=== PATIENT | female | born 1970 | race Caucasian/White ===

== ENCOUNTER 2018-09-21 16:34 | Emergency (ER) | payer OTHER ==
[~2018-09-21] VITALS: Ht 160 cm; Wt 66.7 kg
[2018-09-21 17:30] LABS: BILIRUBIN,URINE NEGATIVE (NEGATIVE); CLARITY,URINE SL CLOUDY (CLEAR); COLOR,URINE YELLOW (YELLOW); KETONES,URINE 1+ (NEGATIVE); LEUKOCYTE ESTERASE ,URINE NEGATIVE (NEGATIVE); NITRITE,URINE NEGATIVE (NEGATIVE); PREGNANCY TEST, URINE NEGATIVE (NEGATIVE); PROTEIN,URINE DIPSTICK NEGATIVE (NEGATIVE); URINE UROBILINOGEN 0.2 mg/dL (0.2 - 1)
[2018-09-21 17:36] LABS: EOSINOPHILS % 0.2 % (0.0-6.0); HEMATOCRIT 43.4 % (34.2-44.1); HEMOGLOBIN 14.2 g/dL (12.0-16.0); LYMPHOCYTES % 1.1 % (18.0-39.1); MEAN CORPUSCULAR HGB CONC 32.7 g/dL (31-35); MEAN CORPUSCULAR VOLUME 88.8 fL (81-99); MONOCYTES % 0.7 % (4.4-11.3); NEUTROPHILS % 7.7 % (38.7-80.0); PLATELET COUNT 195 x10e3/uL (140-360); RED BLOOD COUNT 4.89 x10e6/uL (3.6-5.1); RED CELL DISTRIBUTION WIDTH 13.2 % (11.7-14.4)
[2018-09-21 17:37] LABS: BASOPHILS % 0.1 % (0.0-1.0)
[2018-09-21 17:38] LABS: BACTERIA,URINE MANY /HPF; EPITHELIAL CELLS,URINE MODERATE /LPF; WBC,URINE (MAN) 0-5 /HPF (0-5)
[2018-09-21 17:57] LABS: BLOOD UREA NITROGEN 10 mg/dL (7-26); BUN/CREATININE RATIO 14 (6-25); CALCIUM 9.9 mg/dL (8.4-10.2); CARBON DIOXIDE 24 mmol/L (22-29); CHLORIDE 102 mmol/L (98-107); CREATININE, SERUM 0.71 mg/dL (0.57-1.11); EST GLOMERULAR FILTRATION RATE > 60 ML/MIN (60-); GLUCOSE 79 mg/dL (74-118); SODIUM 137 mmol/L (136-145)
[2018-09-21 17:58] LABS: ALANINE AMINOTRANSFERASE 47 IU/L (0-55); ALBUMIN 3.9 g/dL (3.5-5.0); ALKALINE PHOSPHATASE 111 IU/L (40-150)
--- NOTE | 2018-09-21 18:37 | Diagnostic Imaging Report ---
Exam: Abdominal film Clinical History: Abdominal pain Comparison: None. DISCUSSION: Nonobstructive bowel gas pattern. No visualized free air. IMPRESSION: 1. Nonobstructive bowel gas pattern. Signed by: Dr. Krishna Osborne M.D. on 09/21/2018 6:34 PM
== END 2018-09-21 22:56 | disposition home or self-care (01) ==
LOC: ER 16:34
DX: R10.32 Left lower quadrant pain (principal)
CPT/HCPCS: 36415; 74018; 80053; 81001; 81025; 85025; 99284

== ENCOUNTER 2020-08-16 16:46 | Inpatient (IN) | payer OTHER ==
[~2020-08-16] VITALS: Ht 160 cm; Wt 67.6 kg
[2020-08-16] MEDS ORDERED: ACETAMINOPHEN 325 MG TAB PO STA (17:03)
[2020-08-16 17:16] LABS: BASOPHILS # (AUTO) 0.1 (0.0-0.1); BASOPHILS % 0.4 % (0.0-1.0); EOSINOPHILS % 0.3 % (0.0-6.0); HEMATOCRIT 37.3 % (34.2-44.1); HEMOGLOBIN 12.1 g/dL (12.0-16.0); LYMPHOCYTES # (AUTO) 0.9 (1.0-3.2); LYMPHOCYTES % 6.6 % (18.0-39.1); MEAN CORPUSCULAR HEMOGLOBIN 27.9 pg (28-32); MEAN CORPUSCULAR HGB CONC 32.4 g/dL (31-35); MEAN CORPUSCULAR VOLUME 85.9 fL (81-99); NEUTROPHILS # (AUTO) 11.9 (2.1-6.9); NEUTROPHILS % 84.9 % (38.7-80.0); PLATELET COUNT 278 x10e3/uL (140-360); RED BLOOD COUNT 4.34 x10e6/uL (3.6-5.1); RED CELL DISTRIBUTION WIDTH 12.5 % (11.7-14.4)
[2020-08-16] MEDS ORDERED: PIPERACILLIN/TAZO 4.5 GM 100 ML IV STA (17:24)
[2020-08-16 17:30] LABS: CLARITY,URINE HAZY (CLEAR); COLOR,URINE YELLOW (YELLOW); LEUKOCYTE ESTERASE ,URINE TRACE (NEGATIVE); NITRITE,URINE NEGATIVE (NEGATIVE)
[2020-08-16] MEDS ORDERED: LACTATED RINGER'S 1,000 ML INJ ONE ×2 (17:30)
[2020-08-16 17:31] LABS: KETONES,URINE 2+ (NEGATIVE); PROTEIN,URINE DIPSTICK >=300 (NEGATIVE); URINE UROBILINOGEN 0.2 mg/dL (0.2 - 1)
[2020-08-16 17:32] LABS: BACTERIA,URINE FEW /HPF; EPITHELIAL CELLS,URINE FEW /LPF; RBC,URINE 21-50 /HPF (0-5)
[2020-08-16 17:39] LABS: ALANINE AMINOTRANSFERASE 9 IU/L (0-55); ALBUMIN/GLOBULIN RATIO 0.7 (0.8-2.0); ALKALINE PHOSPHATASE 84 IU/L (40-150); ANION GAP 17.8 mmol/L (8-16); BLOOD UREA NITROGEN 11 mg/dL (7-26); BUN/CREATININE RATIO 15 (6-25); CALCIUM 8.7 mg/dL (8.4-10.2); CARBON DIOXIDE 22 mmol/L (22-29); CHLORIDE 100 mmol/L (98-107); CREATININE, SERUM 0.71 mg/dL (0.57-1.11); EST GLOMERULAR FILTRATION RATE > 60 ML/MIN (60-); GLUCOSE 108 mg/dL (74-118); POTASSIUM 3.8 mmol/L (3.5-5.1); SODIUM 136 mmol/L (136-145)
[2020-08-16 17:42] LABS: INR 1.23; PROTHROMBIN TIME 16.3 seconds (11.9-14.5)
[2020-08-16] MEDS ORDERED: SODIUM CHLORIDE 0.9% 100 ML ONE (18:11)
[2020-08-16] MEDS ORDERED: IOPAMIDOL 370 MG/ML 200 ML INFUS..BTL INJ ONE (18:12)
[2020-08-16] MEDS ORDERED: METRONIDAZOLE 750MG/NS 150ML 150 ML IV STA (20:06)
[2020-08-16] MEDS: ONDANSETRON HCL INJ 2MG/ML 2ML 2 MG/ML VIAL IV PRN (20:38)
[2020-08-16] MEDS: METRONIDAZOLE 500MG/NS 100ML 100 ML IV SCH (20:54)
[2020-08-16 22:19] VITALS: BP 90/64
[2020-08-16 22:38] VITALS: BP 90/64
[2020-08-16 22:41] VITALS: BP 90/64
[2020-08-16] MEDS: SODIUM CHLORIDE 0.9% 1000ML 1,000 ML IV SCH (22:57)
[2020-08-16] MEDS ORDERED: LEVOTHYROXINE100 MC2 PO (22:59)
[2020-08-17] VITALS (8 sets, daily range): BP systolic 104–117; BP diastolic 65–70
[2020-08-17] MEDS ORDERED: HYDRALAZINE HCL 20 MG/ML VIAL IV PRN (03:15)
[2020-08-17] MEDS ORDERED: DOCUSATE SODIUM 100 MG CAP PO PRN (03:15)
[2020-08-17] MEDS ORDERED: POTASSIUM CHLORIDE 20 MEQ TAB CR PO PRN (03:15)
[2020-08-17] MEDS ORDERED: MELATONIN 5 MG TABLET PO PRN (03:15)
[2020-08-17] MEDS ORDERED: CHLORASEPTIC SPRAY 177 ML BTL MM PRN (03:15)
[2020-08-17] MEDS ORDERED: DEXTROSE 50% SYRINGE 50 ML IV PRN (03:15)
[2020-08-17] MEDS ORDERED: ACETAMINOPHEN 325 MG TAB PO PRN (03:15)
[2020-08-17] MEDS ORDERED: DIPHENHYDRAMINE HCL 25 MG CAP PO PRN (03:15)
[2020-08-17] MEDS: SODIUM CHLORIDE 0.9% 1000ML 1,000 ML IV SCH (05:38)
[2020-08-17] MEDS ORDERED: METRONIDAZOLE 750MG/NS 150ML 150 ML IV SCH (06:00)
[2020-08-17] MEDS ORDERED: PIPERACILLIN/TAZO 4.5 GM 100 ML IV SCH ×2 (06:00→09:30)
[2020-08-17 07:29] LABS: BASOPHILS % 0.3 % (0.0-1.0); EOSINOPHILS # (AUTO) 0.1 (0.0-0.4); EOSINOPHILS % 0.6 % (0.0-6.0); HEMATOCRIT 31.8 % (34.2-44.1); HEMOGLOBIN 10.1 g/dL (12.0-16.0); LYMPHOCYTES # (AUTO) 0.9 (1.0-3.2); LYMPHOCYTES % 8.4 % (18.0-39.1); MEAN CORPUSCULAR HEMOGLOBIN 27.4 pg (28-32); MEAN CORPUSCULAR HGB CONC 31.8 g/dL (31-35); MEAN CORPUSCULAR VOLUME 86.4 fL (81-99); MONOCYTES # (AUTO) 0.9 (0.2-0.8); MONOCYTES % 8.1 % (4.4-11.3); NEUTROPHILS # (AUTO) 9.1 (2.1-6.9); NEUTROPHILS % 81.7 % (38.7-80.0); PLATELET COUNT 199 x10e3/uL (140-360); RED BLOOD COUNT 3.68 x10e6/uL (3.6-5.1); RED CELL DISTRIBUTION WIDTH 12.6 % (11.7-14.4)
[2020-08-17] MEDS: PANTOPRAZOLE SOD 40 MG TABEC PO SCH (07:30)
[2020-08-17 07:53] LABS: ANION GAP 13.3 mmol/L (8-16); BLOOD UREA NITROGEN 8 mg/dL (7-26); BUN/CREATININE RATIO 13 (6-25); CALCIUM 7.7 mg/dL (8.4-10.2); CARBON DIOXIDE 23 mmol/L (22-29); CHLORIDE 104 mmol/L (98-107); CREATININE, SERUM 0.63 mg/dL (0.57-1.11); EST GLOMERULAR FILTRATION RATE > 60 ML/MIN (60-); GLUCOSE 98 mg/dL (74-118); POTASSIUM 3.3 mmol/L (3.5-5.1); SODIUM 137 mmol/L (136-145)
[2020-08-17] MEDS: METRONIDAZOLE 500MG/NS 100ML 100 ML IV SCH (09:35)
[2020-08-17] MEDS: ONDANSETRON HCL INJ 2MG/ML 2ML 2 MG/ML VIAL IV PRN ×2 (13:55→22:23)
[2020-08-17] MEDS: MORPHINE SULFATE INJ 4 MG/ML INJ 1ML IV PRN ×2 (13:55→22:23)
[2020-08-17] MEDS: LEVOFLOXACIN 500MG/D5W 100ML 100 ML IV SCH (14:00)
[2020-08-17] MEDS ORDERED: POTASSIUM CHLORIDE 20MEQ/100ML 200 ML IV ONE (14:00)
[2020-08-17] MEDS: DEXTROSE 5%/0.9% SOD CHL 1,000 ML IV SCH (15:40)
[2020-08-17] MEDS: ENOXAPARIN SOD INJ 40 MG/0.4 ML SYR SC SCH (17:54)
[2020-08-17] MEDS: PIPERACILLIN/TAZOBAC 3.375 GM in SODIUM CHLORIDE 0.9% 50ML 50 ML IV SCH (17:54)
[2020-08-17] MEDS: METRONIDAZOLE 750MG/NS 150ML 150 ML IV SCH (22:23)
[2020-08-18] VITALS (8 sets, daily range): BP systolic 91–112; BP diastolic 60–76
[2020-08-18] MEDS: PIPERACILLIN/TAZOBAC 3.375 GM in SODIUM CHLORIDE 0.9% 50ML 50 ML IV SCH ×4 (00:23→18:41)
[2020-08-18] MEDS: DEXTROSE 5%/0.9% SOD CHL 1,000 ML IV SCH ×3 (00:30→21:03)
[2020-08-18 05:22] LABS: BASOPHILS % 0.4 % (0.0-1.0); EOSINOPHILS # (AUTO) 0.1 (0.0-0.4); EOSINOPHILS % 1.3 % (0.0-6.0); HEMATOCRIT 29.9 % (34.2-44.1); HEMOGLOBIN 9.4 g/dL (12.0-16.0); MEAN CORPUSCULAR HEMOGLOBIN 27.6 pg (28-32); MEAN CORPUSCULAR HGB CONC 31.4 g/dL (31-35); MEAN CORPUSCULAR VOLUME 87.9 fL (81-99); MONOCYTES # (AUTO) 0.6 (0.2-0.8); MONOCYTES % 7.7 % (4.4-11.3); NEUTROPHILS # (AUTO) 5.6 (2.1-6.9); NEUTROPHILS % 75.5 % (38.7-80.0); PLATELET COUNT 196 x10e3/uL (140-360); RED CELL DISTRIBUTION WIDTH 12.7 % (11.7-14.4)
[2020-08-18 05:53] LABS: ANION GAP 10.4 mmol/L (8-16); BLOOD UREA NITROGEN < 5 mg/dL (7-26); CALCIUM 7.5 mg/dL (8.4-10.2); CARBON DIOXIDE 25 mmol/L (22-29); CHLORIDE 106 mmol/L (98-107); CREATININE, SERUM 0.68 mg/dL (0.57-1.11); EST GLOMERULAR FILTRATION RATE > 60 ML/MIN (60-); GLUCOSE 116 mg/dL (74-118); POTASSIUM 3.4 mmol/L (3.5-5.1); SODIUM 138 mmol/L (136-145)
[2020-08-18 05:57] LABS: BUN/CREATININE RATIO 7 (6-25)
[2020-08-18] MEDS: METRONIDAZOLE 750MG/NS 150ML 150 ML IV SCH ×3 (05:58→21:56)
[2020-08-18] MEDS ORDERED: LEVOTHYROXINE SODIUM PO SCH (07:30)
[2020-08-18] MEDS: PANTOPRAZOLE SOD 40 MG TABEC PO SCH (09:33)
[2020-08-18] MEDS: THYROID 60 MG TAB PO SCH (10:50)
[2020-08-18] MEDS: LEVOFLOXACIN 500MG/D5W 100ML 100 ML IV SCH (15:40)
[2020-08-18] MEDS: ENOXAPARIN SOD INJ 40 MG/0.4 ML SYR SC SCH (18:41)
[2020-08-18] MEDS: MORPHINE SULFATE INJ 4 MG/ML INJ 1ML IV PRN (20:45)
[2020-08-18] MEDS: ONDANSETRON HCL INJ 2MG/ML 2ML 2 MG/ML VIAL IV PRN (20:45)
[2020-08-18] MEDS: CEFEPIME 2 GM/NS 0.9% 100 ML 100 ML IV SCH (23:00)
[2020-08-19] VITALS (9 sets, daily range): BP systolic 108–124; BP diastolic 67–83
[2020-08-19] MEDS: DEXTROSE 5%/0.9% SOD CHL 1,000 ML IV SCH ×3 (01:51→21:03)
[2020-08-19] MEDS: METRONIDAZOLE 750MG/NS 150ML 150 ML IV SCH ×2 (05:17→13:52)
[2020-08-19 07:06] LABS: BASOPHILS % 0.8 % (0.0-1.0); EOSINOPHILS # (AUTO) 0.2 (0.0-0.4); EOSINOPHILS % 2.8 % (0.0-6.0); HEMATOCRIT 30.5 % (34.2-44.1); HEMOGLOBIN 9.8 g/dL (12.0-16.0); LYMPHOCYTES # (AUTO) 0.8 (1.0-3.2); LYMPHOCYTES % 14.6 % (18.0-39.1); MEAN CORPUSCULAR HGB CONC 32.1 g/dL (31-35); MEAN CORPUSCULAR VOLUME 87.1 fL (81-99); MONOCYTES # (AUTO) 0.4 (0.2-0.8); MONOCYTES % 8.3 % (4.4-11.3); NEUTROPHILS # (AUTO) 3.8 (2.1-6.9); NEUTROPHILS % 72.4 % (38.7-80.0); PLATELET COUNT 208 x10e3/uL (140-360); RED CELL DISTRIBUTION WIDTH 12.7 % (11.7-14.4)
[2020-08-19 07:52] LABS: ANION GAP 12.7 mmol/L (8-16); BLOOD UREA NITROGEN < 5 mg/dL (7-26); CALCIUM 7.7 mg/dL (8.4-10.2); CARBON DIOXIDE 24 mmol/L (22-29); CHLORIDE 107 mmol/L (98-107); CREATININE, SERUM 0.64 mg/dL (0.57-1.11); EST GLOMERULAR FILTRATION RATE > 60 ML/MIN (60-); GLUCOSE 123 mg/dL (74-118); POTASSIUM 3.7 mmol/L (3.5-5.1); SODIUM 140 mmol/L (136-145)
[2020-08-19 07:54] LABS: BUN/CREATININE RATIO 8 (6-25)
[2020-08-19] MEDS: CEFEPIME 2 GM/NS 0.9% 100 ML 100 ML IV SCH (09:27)
[2020-08-19] MEDS: THYROID 60 MG TAB PO SCH (09:27)
[2020-08-19] MEDS: PANTOPRAZOLE SOD 40 MG TABEC PO SCH (09:27)
[2020-08-19] MEDS: ENOXAPARIN SOD INJ 40 MG/0.4 ML SYR SC SCH (16:35)
[2020-08-19] MEDS: MEROPENEM 1GM 100 ML IV SCH (21:03)
[2020-08-20] VITALS (7 sets, daily range): BP systolic 119–128; BP diastolic 71–84
[2020-08-20] MEDS: MEROPENEM 1GM 100 ML IV SCH ×3 (05:14→21:29)
[2020-08-20] MEDS: DEXTROSE 5%/0.9% SOD CHL 1,000 ML IV SCH ×4 (05:25→23:21)
[2020-08-20] MEDS: THYROID 60 MG TAB PO SCH (08:29)
[2020-08-20] MEDS: PANTOPRAZOLE SOD 40 MG TABEC PO SCH (08:29)
[2020-08-20] MEDS: ENOXAPARIN SOD INJ 40 MG/0.4 ML SYR SC SCH (16:05)
[2020-08-21] VITALS (8 sets, daily range): BP systolic 103–129; BP diastolic 72–85
[2020-08-21] MEDS: MEROPENEM 1GM 100 ML IV SCH ×3 (06:20→22:58)
[2020-08-21] MEDS: PANTOPRAZOLE SOD 40 MG TABEC PO SCH (08:22)
[2020-08-21] MEDS: THYROID 60 MG TAB PO SCH (08:29)
[2020-08-21] MEDS: DEXTROSE 5%/0.9% SOD CHL 1,000 ML IV SCH (14:45)
[2020-08-21] MEDS: ENOXAPARIN SOD INJ 40 MG/0.4 ML SYR SC SCH (18:14)
[2020-08-22] VITALS (7 sets, daily range): BP systolic 93–109; BP diastolic 42–70
[2020-08-22] MEDS: MEROPENEM 1GM 100 ML IV SCH ×2 (06:25→13:58)
[2020-08-22] MEDS: THYROID 60 MG TAB PO SCH (07:58)
[2020-08-22] MEDS: PANTOPRAZOLE SOD 40 MG TABEC PO SCH (07:58)
[2020-08-22] MEDS ORDERED: ONDANSETRON HCL 4 MG ORAL DISINTEGRATING TAB PO PRN (09:15)
[2020-08-22] MEDS: ENOXAPARIN SOD INJ 40 MG/0.4 ML SYR SC SCH (16:02)
== END 2020-08-22 17:49 | disposition home or self-care (01) | DRG 872 ==
LOC: ER 17:39 → ERHOLD 20:59 → MED/SURG 21:57
PROVIDERS: ADMIT Internal Medicine; ATTEND Internal Medicine
PROC: 02HV33Z Insertion of Infusion Device into Superior Vena Cava, Percutaneous Approach (ICD-10-PCS; principal; 2020-08-16)
PROC: 02HV33Z Insertion of Infusion Device into Superior Vena Cava, Percutaneous Approach (ICD-10-PCS; 2020-08-21)
DX: A41.9 Sepsis, unspecified organism (principal); K57.80 Diverticulitis of intestine, part unspecified, with perforation and abscess without bleeding; E03.9 Hypothyroidism, unspecified; D72.829 Elevated white blood cell count, unspecified; Z20.822 Contact with and (suspected) exposure to COVID-19
CPT/HCPCS: 36415; 36569; 36584; 71045; 71046; 74177; 74470; 80048; 80053; 81001; 83605; 83690; 84702; 85025; 85610; 87040; 87086; 93005; 96361; 99284; J1650; J1956; J2270; J2405; J2543; J3480; J7030; J7042; J7050; J7121; Q9967; U0002

== ENCOUNTER → 2020-09-16 | Outpatient (CLI) | payer OTHER ==
[~2020-09-16] MED LIST: DIATRIZOATE MEGL/DIATRIZOA SOD 30 ML BTL PO ONE; IOPAMIDOL 370 MG/ML 200 ML INFUS..BTL INJ ONE; LEVOTHYROXINE100 MC2 PO; SODIUM CHLORIDE 0.9% 50ML 50 ML ONE
== END ==
LOC: CT 13:46
PROVIDERS: ATTEND Internal Medicine Infectious Disease
DX: K57.33 Diverticulitis of large intestine without perforation or abscess with bleeding (principal)
CPT/HCPCS: 74177; 81025; Q9967

== ENCOUNTER → 2020-10-06 | Outpatient (CLI) | payer OTHER ==
[~2020-10-06] MED LIST changes: -DIATRIZOATE MEGL/DIATRIZOA SOD 30 ML BTL PO ONE; -IOPAMIDOL 370 MG/ML 200 ML INFUS..BTL INJ ONE; -SODIUM CHLORIDE 0.9% 50ML 50 ML ONE
== END ==
LOC: DX 10:39
PROVIDERS: ATTEND Surgery
DX: K57.32 Diverticulitis of large intestine without perforation or abscess without bleeding (principal)
CPT/HCPCS: 74280; 81025

== ENCOUNTER 2020-10-29 07:10 | Inpatient (IN) | payer OTHER ==
[2020-10-24 10:17] LABS: BASOPHILS # (AUTO) 0.1 (0.0-0.1); BASOPHILS % 1.2 % (0.0-1.0); EOSINOPHILS # (AUTO) 0.1 (0.0-0.4); EOSINOPHILS % 2.1 % (0.0-6.0); HEMATOCRIT 40.7 % (34.2-44.1); HEMOGLOBIN 13.4 g/dL (12.0-16.0); LYMPHOCYTES % 19.8 % (18.0-39.1); MEAN CORPUSCULAR HEMOGLOBIN 29.1 pg (28-32); MEAN CORPUSCULAR HGB CONC 32.9 g/dL (31-35); MEAN CORPUSCULAR VOLUME 88.3 fL (81-99); MONOCYTES # (AUTO) 0.4 (0.2-0.8); MONOCYTES % 7.9 % (4.4-11.3); NEUTROPHILS # (AUTO) 3.3 (2.1-6.9); NEUTROPHILS % 68.6 % (38.7-80.0); PLATELET COUNT 194 x10e3/uL (140-360); RED BLOOD COUNT 4.61 x10e6/uL (3.6-5.1)
[2020-10-24 10:36] LABS: ALANINE AMINOTRANSFERASE 30 IU/L (0-55); ALBUMIN 4.1 g/dL (3.5-5.0); ALBUMIN/GLOBULIN RATIO 1.4 (0.8-2.0); ALKALINE PHOSPHATASE 68 IU/L (40-150); ANION GAP 12.4 mmol/L (8-16); BLOOD UREA NITROGEN 14 mg/dL (7-26); BUN/CREATININE RATIO 18 (6-25); CARBON DIOXIDE 27 mmol/L (22-29); CHLORIDE 105 mmol/L (98-107); EST GLOMERULAR FILTRATION RATE > 60 ML/MIN (60-); GLUCOSE 99 mg/dL (74-118); POTASSIUM 4.4 mmol/L (3.5-5.1); SODIUM 140 mmol/L (136-145)
[~2020-10-29] VITALS: Ht 160 cm; Wt 76.2 kg
[~2020-10-29 07:10] MED LIST changes: +ARMOUR THYROID60 MG PO
[2020-10-29] MEDS ORDERED: QUERCETIN DIHYDR1 GM PO (07:41)
[2020-10-29] MEDS ORDERED: NEOMYCIN SULFA500 MG PO (07:41)
[2020-10-29] MEDS ORDERED: VITAMIN K7 PO (07:41)
[2020-10-29] MEDS ORDERED: AZITHROMYCIN600 MG PO (07:41)
[2020-10-29] MEDS ORDERED: ZINC PO (07:41)
[2020-10-29] MEDS ORDERED: VITAMIN C500 MG PO (07:41)
[2020-10-29] MEDS ORDERED: SLOW-MAG64 MG PO (07:41)
[2020-10-29] MEDS ORDERED: VITAMIN D310 MCG PO (07:41)
[2020-10-29] MEDS ORDERED: PROBIOTIC PO (07:41)
[2020-10-29] MEDS ORDERED: PIPERACILLIN/TAZOBAC 3.375 GM VIAL ONE (07:59)
[2020-10-29] MEDS ORDERED: GENTAMICIN 80MG/NS 100 ML 200 ML IV ONE (08:00)
[2020-10-29] MEDS ORDERED: SODIUM CHLORIDE 0.9% 50ML 50 ML ONE (08:01)
[2020-10-29] MEDS ORDERED: IOPAMIDOL 300MG/ML 50ML INFUS..BTL IV ONE (08:41)
[2020-10-29] MEDS ORDERED: BUPIVACAINE 0.5%/EPI 30 ML SDV INJ ONE (08:42)
[2020-10-29] MEDS ORDERED: HYDROMORPHONE 2MG/ML 2 MG/ML ML ONE (10:33)
[2020-10-29] MEDS ORDERED: HYDROMORPHONE 0.2MG/ML-SOD CHL 30ML PCA SYRINGE IV PRN (13:00)
[2020-10-29] MEDS ORDERED: KETOROLAC TROMETHAMINE 30 MG/ML VIAL IV PRN (13:00)
[2020-10-29] MEDS ORDERED: NALOXONE HCL INJ 0.4 MG/ML AMP IV PRN (13:00)
[2020-10-29] MEDS ORDERED: METOCLOPRAMIDE HCL 10 MG/2ML VIAL IV PRN (13:00)
[2020-10-29] MEDS ORDERED: ACETAMINOPHEN 1000 MG/100 ML IV PRN (13:00)
[2020-10-29] MEDS ORDERED: DIPHENHYDRAMINE HCL INJ 50 MG/ML VIAL IM PRN (13:00)
[2020-10-29] MEDS: SODIUM CHLORIDE 0.9% 250ML IRRIG IR SCH ×3 (13:00→22:37)
[2020-10-29] MEDS ORDERED: FENTANYL CITRATE/PF 100MCG/2 ML INJ ONE (13:16)
[2020-10-29] MEDS ORDERED: MIDAZOLAM HCL 2 MG/2 ML VIAL ONE (13:16)
[2020-10-29] MEDS ORDERED: HYDROMORPHONE 0.2MG/ML-SOD CHL 30ML PCA SYRINGE IV ONE (13:28)
[2020-10-29] MEDS ORDERED: HYDROMORPHONE 1MG/1ML INJ ONE (13:36)
[2020-10-29] MEDS: LACTATED RINGER'S 1,000 ML INJ SCH (14:00)
[2020-10-29] MEDS ORDERED: CEFOXITIN 1GM/0.9% NS 50ML 50 ML IV SCH (16:00)
[2020-10-29] MEDS ORDERED: PROPOFOL IV EMULSION 10 MG/ML 20 ML VIAL ONE (17:51)
[2020-10-29] MEDS ORDERED: ONDANSETRON HCL INJ 2MG/ML 2ML 2 MG/ML VIAL ONE (17:51)
[2020-10-29] MEDS ORDERED: SEVOFLURANE INHAL SOLN 250 ML PEN BTL ONE (17:51)
[2020-10-29] MEDS ORDERED: LIDOCAINE HCL 2% LOCAL INJ 5 ML SDV VIAL INJ ONE (17:51)
[2020-10-29] MEDS ORDERED: DEXAMETHASONE SOD PHOS INJ 4 MG/ML VIAL ONE (17:51)
[2020-10-29] MEDS ORDERED: POVIDONE IODINE 0.05% 0.05 % ML PO ONE (17:51)
[2020-10-29] MEDS ORDERED: ROCURONIUM BROMIDE 10 MG/ML 5ML VIAL IV ONE (17:51)
[2020-10-29 18:45] VITALS: BP 115/66
[2020-10-29 19:32] VITALS: BP 107/63
[2020-10-29] MEDS: ONDANSETRON HCL INJ 2MG/ML 2ML 2 MG/ML VIAL IV PRN (19:44)
[2020-10-29] MEDS ORDERED: KEFLEX125 MG/5 M PO (21:01)
[2020-10-29 21:35] VITALS: BP 107/63
[2020-10-29 23:05] VITALS: BP 107/63
[2020-10-29 23:42] VITALS: BP 113/85
[2020-10-30] VITALS (8 sets, daily range): BP systolic 103–134; BP diastolic 57–78
[2020-10-30] MEDS: SODIUM CHLORIDE 0.9% 250ML IRRIG IR SCH ×6 (01:01→21:51)
[2020-10-30] MEDS: LACTATED RINGER'S 1,000 ML INJ SCH ×5 (01:04→22:00)
[2020-10-30] MEDS: CEFOXITIN 1GM/0.9% NS 50ML 50 ML IV SCH ×3 (03:42→20:24)
[2020-10-30 04:50] LABS: BASOPHILS % 0.1 % (0.0-1.0); HEMATOCRIT 34.6 % (34.2-44.1); HEMOGLOBIN 11.3 g/dL (12.0-16.0); LYMPHOCYTES # (AUTO) 0.5 (1.0-3.2); LYMPHOCYTES % 4.6 % (18.0-39.1); MEAN CORPUSCULAR HEMOGLOBIN 28.9 pg (28-32); MEAN CORPUSCULAR HGB CONC 32.7 g/dL (31-35); MEAN CORPUSCULAR VOLUME 88.5 fL (81-99); MONOCYTES # (AUTO) 0.8 (0.2-0.8); MONOCYTES % 7.3 % (4.4-11.3); NEUTROPHILS # (AUTO) 9.3 (2.1-6.9); NEUTROPHILS % 87.6 % (38.7-80.0); PLATELET COUNT 164 x10e3/uL (140-360); RED BLOOD COUNT 3.91 x10e6/uL (3.6-5.1); RED CELL DISTRIBUTION WIDTH 14.5 % (11.7-14.4)
[2020-10-30 05:17] LABS: ANION GAP 14.5 mmol/L (8-16); BLOOD UREA NITROGEN 8 mg/dL (7-26); BUN/CREATININE RATIO 11 (6-25); CARBON DIOXIDE 24 mmol/L (22-29); CHLORIDE 103 mmol/L (98-107); CREATININE, SERUM 0.73 mg/dL (0.57-1.11); EST GLOMERULAR FILTRATION RATE > 60 ML/MIN (60-); GLUCOSE 120 mg/dL (74-118); POTASSIUM 4.5 mmol/L (3.5-5.1); SODIUM 137 mmol/L (136-145)
[2020-10-30] MEDS: ONDANSETRON HCL INJ 2MG/ML 2ML 2 MG/ML VIAL IV PRN ×2 (13:06→21:11)
[2020-10-30] MEDS ORDERED: HYDROMORPHONE 0.2MG/ML-SOD CHL 30ML PCA SYRINGE IV PRN (17:45)
[2020-10-30] MEDS: ACETAMINOPHEN 1000 MG/100 ML IV PRN (17:50)
[2020-10-31] VITALS (8 sets, daily range): BP systolic 122–150; BP diastolic 64–82
[2020-10-31] MEDS: SODIUM CHLORIDE 0.9% 250ML IRRIG IR SCH ×6 (00:56→20:04)
[2020-10-31] MEDS: CEFOXITIN 1GM/0.9% NS 50ML 50 ML IV SCH ×3 (04:42→20:04)
[2020-10-31 04:46] LABS: BASOPHILS % 0.3 % (0.0-1.0); EOSINOPHILS % 0.4 % (0.0-6.0); HEMATOCRIT 33.6 % (34.2-44.1); LYMPHOCYTES # (AUTO) 0.9 (1.0-3.2); LYMPHOCYTES % 12.7 % (18.0-39.1); MEAN CORPUSCULAR HEMOGLOBIN 28.9 pg (28-32); MEAN CORPUSCULAR HGB CONC 32.7 g/dL (31-35); MEAN CORPUSCULAR VOLUME 88.4 fL (81-99); MONOCYTES # (AUTO) 0.6 (0.2-0.8); MONOCYTES % 7.8 % (4.4-11.3); NEUTROPHILS # (AUTO) 5.5 (2.1-6.9); NEUTROPHILS % 78.5 % (38.7-80.0); PLATELET COUNT 133 x10e3/uL (140-360); RED CELL DISTRIBUTION WIDTH 14.6 % (11.7-14.4)
[2020-10-31 05:06] LABS: ANION GAP 13.6 mmol/L (8-16); BLOOD UREA NITROGEN 6 mg/dL (7-26); BUN/CREATININE RATIO 10 (6-25); CALCIUM 8.3 mg/dL (8.4-10.2); CARBON DIOXIDE 26 mmol/L (22-29); CHLORIDE 103 mmol/L (98-107); CREATININE, SERUM 0.62 mg/dL (0.57-1.11); EST GLOMERULAR FILTRATION RATE > 60 ML/MIN (60-); GLUCOSE 89 mg/dL (74-118); POTASSIUM 3.6 mmol/L (3.5-5.1); SODIUM 139 mmol/L (136-145)
[2020-10-31] MEDS: ACETAMINOPHEN 1000 MG/100 ML IV PRN (05:43)
[2020-10-31] MEDS: LACTATED RINGER'S 1,000 ML INJ SCH ×3 (05:43→23:19)
[2020-10-31] MEDS: ONDANSETRON HCL INJ 2MG/ML 2ML 2 MG/ML VIAL IV PRN (06:03)
[2020-11-01] VITALS (8 sets, daily range): BP systolic 129–153; BP diastolic 78–88
[2020-11-01] MEDS: SODIUM CHLORIDE 0.9% 250ML IRRIG IR SCH ×3 (01:56→08:11)
[2020-11-01] MEDS: CEFOXITIN 1GM/0.9% NS 50ML 50 ML IV SCH ×3 (03:25→19:27)
[2020-11-01 04:58] LABS: BASOPHILS % 0.5 % (0.0-1.0); EOSINOPHILS # (AUTO) 0.1 (0.0-0.4); EOSINOPHILS % 1.4 % (0.0-6.0); HEMATOCRIT 34.2 % (34.2-44.1); HEMOGLOBIN 11.3 g/dL (12.0-16.0); LYMPHOCYTES # (AUTO) 0.8 (1.0-3.2); LYMPHOCYTES % 12.4 % (18.0-39.1); MEAN CORPUSCULAR HEMOGLOBIN 29.4 pg (28-32); MEAN CORPUSCULAR VOLUME 88.8 fL (81-99); MONOCYTES # (AUTO) 0.5 (0.2-0.8); MONOCYTES % 8.5 % (4.4-11.3); NEUTROPHILS # (AUTO) 4.8 (2.1-6.9); NEUTROPHILS % 76.7 % (38.7-80.0); PLATELET COUNT 135 x10e3/uL (140-360); RED BLOOD COUNT 3.85 x10e6/uL (3.6-5.1); RED CELL DISTRIBUTION WIDTH 14.1 % (11.7-14.4)
[2020-11-01 05:28] LABS: ANION GAP 14.6 mmol/L (8-16); BLOOD UREA NITROGEN 5 mg/dL (7-26); BUN/CREATININE RATIO 8 (6-25); CALCIUM 8.5 mg/dL (8.4-10.2); CARBON DIOXIDE 22 mmol/L (22-29); CHLORIDE 105 mmol/L (98-107); CREATININE, SERUM 0.66 mg/dL (0.57-1.11); EST GLOMERULAR FILTRATION RATE > 60 ML/MIN (60-); GLUCOSE 75 mg/dL (74-118); POTASSIUM 3.6 mmol/L (3.5-5.1); SODIUM 138 mmol/L (136-145)
[2020-11-01] MEDS: LACTATED RINGER'S 1,000 ML INJ SCH (06:04)
[2020-11-01] MEDS ORDERED: HYDROMORPHONE 1MG/1ML INJ IV PRN (09:15)
[2020-11-01] MEDS: D5.45%NS/KCL 20MEQ 1,000 ML IV SCH ×3 (09:20→20:23)
[2020-11-01] MEDS: HYDROMORPHONE 1MG/1ML INJ IV PRN (18:11)
[2020-11-01] MEDS: ONDANSETRON HCL INJ 2MG/ML 2ML 2 MG/ML VIAL IV PRN (18:11)
[2020-11-01] MEDS ORDERED: ZOLPIDEM TARTRATE 5 MG TAB PO PRN (21:00)
[2020-11-02] VITALS (8 sets, daily range): BP systolic 125–141; BP diastolic 78–88
[2020-11-02] MEDS: HYDROMORPHONE 1MG/1ML INJ IV PRN ×2 (00:29→21:14)
[2020-11-02] MEDS: CEFOXITIN 1GM/0.9% NS 50ML 50 ML IV SCH ×2 (03:44→11:44)
[2020-11-02] MEDS: D5.45%NS/KCL 20MEQ 1,000 ML IV SCH ×2 (04:53→15:49)
[2020-11-02] MEDS ORDERED: ONDANSETRON HCL INJ 2MG/ML 2ML 2 MG/ML VIAL IV PRN (13:45)
[2020-11-02] MEDS ORDERED: ONDANSETRON HCL 4 MG ORAL DISINTEGRATING TAB PO PRN (13:45)
[2020-11-02] MEDS ORDERED: HYDROCODONE/APAP 7.5MG-325MG 1 EA TAB PO PRN (13:45)
[2020-11-03] VITALS (8 sets, daily range): BP systolic 110–133; BP diastolic 72–83
[2020-11-03] MEDS: D5.45%NS/KCL 20MEQ 1,000 ML IV SCH (01:55)
[2020-11-03] MEDS ORDERED: MAGNESIUM HYDROXIDE 30 ML UDC PO ONE (14:00)
[2020-11-04] VITALS: BP 145/80
[2020-11-04 04:00] VITALS: BP 114/77
[2020-11-04 07:37] VITALS: BP 114/77
[2020-11-04 07:49] VITALS: BP 118/81
[2020-11-04 11:42] VITALS: BP 122/80
[2020-11-04 15:36] VITALS: BP 111/73
[2020-11-04] MEDS ORDERED: BALSAM PERU/CASTOR OIL 60 GM OINT...G. TP SCH (15:45)
[2020-11-04] MEDS ORDERED: MACROBID 100 M100 MG PO (15:49)
== END 2020-11-04 17:03 | disposition home or self-care (01) | DRG 654 ==
LOC: OR 07:10 → PACU V 13:05 → MED/SURG 18:30
PROVIDERS: ADMIT Surgery; ATTEND Surgery
PROC: 0TQB8ZZ Repair Bladder, Via Natural or Artificial Opening Endoscopic (ICD-10-PCS; 2020-10-29)
PROC: 0UN70ZZ Release Bilateral Fallopian Tubes, Open Approach (ICD-10-PCS; 2020-10-29)
PROC: 0TBB8ZZ Excision of Bladder, Via Natural or Artificial Opening Endoscopic (ICD-10-PCS; 2020-10-29)
PROC: BT141ZZ Fluoroscopy of Kidneys, Ureters and Bladder using Low Osmolar Contrast (ICD-10-PCS; 2020-10-29)
PROC: 0DTE0ZZ Resection of Large Intestine, Open Approach (ICD-10-PCS; principal; 2020-10-29 09:11)
PROC: 0T788DZ Dilation of Bilateral Ureters with Intraluminal Device, Via Natural or Artificial Opening Endoscopic (ICD-10-PCS; 2020-10-29 09:11)
DX: N32.1 Vesicointestinal fistula (principal); K57.92 Diverticulitis of intestine, part unspecified, without perforation or abscess without bleeding; K91.30 Postprocedural intestinal obstruction, unspecified as to partial versus complete; N39.0 Urinary tract infection, site not specified; N81.10 Cystocele, unspecified; N36.41 Hypermobility of urethra; N81.6 Rectocele; N39.46 Mixed incontinence; R35.1 Nocturia; Z80.42 Family history of malignant neoplasm of prostate; Z20.822 Contact with and (suspected) exposure to COVID-19
CPT/HCPCS: 36415; 74420; 80048; 80053; 81025; 85025; 86850; 86900; 88307; 93005; C1758; J1100; J1170; J1200; J1580; J2001; J2250; J2405; J2543; J2765; J3010; J7121; U0002

== ENCOUNTER → 2020-11-11 | Outpatient (CLI) | payer OTHER ==
[~2020-11-11] MED LIST changes: +AZITHROMYCIN600 MG PO; +KEFLEX125 MG/5 M PO; +MACROBID 100 M100 MG PO; +NEOMYCIN SULFA500 MG PO; +PROBIOTIC PO; +QUERCETIN DIHYDR1 GM PO; +SLOW-MAG64 MG PO; +SODIUM CHLORIDE 0.9% 500ML 500 ML ONE; +VITAMIN C500 MG PO; +VITAMIN D310 MCG PO; +VITAMIN K7 PO; +ZINC PO
== END ==
LOC: CT 14:39
PROVIDERS: ATTEND Urology
DX: N32.1 Vesicointestinal fistula (principal)
CPT/HCPCS: 72194; J7040

== ENCOUNTER 2023-10-03 11:04 | Emergency (ER) | payer OTHER ==
[~2023-10-03] VITALS: Ht 160 cm; Wt 72.6 kg
[~2023-10-03 11:04] MED LIST changes: -SODIUM CHLORIDE 0.9% 500ML 500 ML ONE
[2023-10-03] MEDS ORDERED: SODIUM CHLORIDE FLUSH 10 ML SYR IV PRN (11:30)
[2023-10-03 11:45] LABS: BASOPHILS % 0.7 % (0.0-1.0); EOSINOPHILS # (AUTO) 0.2 (0.0-0.4); EOSINOPHILS % 2.7 % (0.0-6.0); HEMATOCRIT 41.4 % (34.2-44.1); HEMOGLOBIN 13.3 g/dL (12.0-16.0); LYMPHOCYTES # (AUTO) 1.1 (1.0-3.2); MEAN CORPUSCULAR HEMOGLOBIN 29.8 pg (28-32); MEAN CORPUSCULAR HGB CONC 32.1 g/dL (31-35); MEAN CORPUSCULAR VOLUME 92.8 fL (81-99); MONOCYTES # (AUTO) 0.4 (0.2-0.8); MONOCYTES % 7.1 % (4.4-11.3); NEUTROPHILS # (AUTO) 4.2 (2.1-6.9); NEUTROPHILS % 70.2 % (38.7-80.0); PLATELET COUNT 184 x10e3/uL (140-360); RED BLOOD COUNT 4.46 x10e6/uL (3.6-5.1); RED CELL DISTRIBUTION WIDTH 12.4 % (11.7-14.4); WHITE BLOOD COUNT 5.94 x10e3/uL (4.8-10.8)
[2023-10-03 11:58] LABS: INR 0.94; PROTHROMBIN TIME 13.2 seconds (11.9-14.5)
[2023-10-03 11:59] LABS: PARTIAL THROMBOPLASTIN TIME 26.5 seconds (23.8-35.5)
[2023-10-03] MEDS: CYCLOBENZAPRINE HCL 10 MG TAB PO ONE (12:16)
[2023-10-03] MEDS: KETOROLAC TROMETHAMINE 30 MG/ML VIAL IV STA (12:17)
[2023-10-03 12:18] LABS: ALANINE AMINOTRANSFERASE 14 IU/L (0-55); ALBUMIN/GLOBULIN RATIO 1.7 (0.8-2.0); ALKALINE PHOSPHATASE 47 IU/L (40-150); ANION GAP 15.9 mmol/L (8-16); BILIRUBIN,TOTAL 0.4 mg/dL (0.2-1.2); BLOOD UREA NITROGEN 12 mg/dL (7-26); BUN/CREATININE RATIO 16 (6-25); CALCIUM 8.7 mg/dL (8.4-10.2); CARBON DIOXIDE 20 mmol/L (22-29); CHLORIDE 107 mmol/L (98-107); CREATININE, SERUM 0.76 mg/dL (0.57-1.11); EST GLOMERULAR FILTRATION RATE 95 ML/MIN (>=60); GLUCOSE 89 mg/dL (74-118); POTASSIUM 3.9 mmol/L (3.5-5.1); SODIUM 139 mmol/L (136-145); TOTAL PROTEIN 6.4 g/dL (6.5-8.1)
[2023-10-03] MEDS: HYDRALAZINE HCL 20 MG/ML VIAL IV STA (12:28)
[2023-10-03 12:34] LABS: TROPONIN I < 0.001 ng/mL (0-0.300)
[2023-10-03 13:06] LABS: BILIRUBIN,URINE NEGATIVE (NEGATIVE); CLARITY,URINE CLEAR (CLEAR); COLOR,URINE YELLOW (YELLOW); GLUCOSE, URINE NEGATIVE (NEGATIVE); KETONES,URINE NEGATIVE (NEGATIVE); LEUKOCYTE ESTERASE ,URINE NEGATIVE (NEGATIVE); NITRITE,URINE NEGATIVE (NEGATIVE); PH,URINE 7 (5 - 7); PROTEIN,URINE DIPSTICK NEGATIVE (NEGATIVE); URINE UROBILINOGEN 0.2 mg/dL (0.2 - 1)
[2023-10-03 13:20] LABS: WBC,URINE (MAN) 0-5 /HPF (0-5)
[2023-10-03 13:22] LABS: BACTERIA,URINE MODERATE /HPF; EPITHELIAL CELLS,URINE MODERATE /LPF; RBC,URINE 0-5 /HPF (0-5)
[2023-10-03 18:51] VITALS: BP 118/67; PULSE 76; RESP 16; O2SAT 100
== END 2023-10-03 18:50 | disposition short-term general hospital (02) ==
LOC: ER 11:08
DX: R53.1 Weakness (principal); G54.4 Lumbosacral root disorders, not elsewhere classified; R20.0 Anesthesia of skin; E03.9 Hypothyroidism, unspecified; Z87.19 Personal history of other diseases of the digestive system
CPT/HCPCS: 36415; 70450; 71045; 72148; 72195; 80053; 81001; 83880; 84484; 85025; 85610; 85730; 93005; 94760; 99284; J1885